=== PATIENT | female | born 1940 | race Caucasian/White ===

== ENCOUNTER 2018-02-17 17:09 | Inpatient (IN) | payer MEDICARE, BC ==
[~2018-02-17] VITALS: Ht 160 cm; Wt 89.1 kg
[2018-02-17] MEDS ORDERED: MEROPENEM 1GM 100 ML IV STA (17:16)
[2018-02-17] MEDS ORDERED: SODIUM CHLORIDE 0.9% 1000ML 1,000 ML IV STA ×2 (17:16→20:40)
[2018-02-17 17:56] LABS: BASOPHILS % 0.2 % (0.0-1.0); HEMATOCRIT 37.5 % (34.2-44.1); HEMOGLOBIN 13.2 g/dL (12.0-16.0); LYMPHOCYTES # (AUTO) 0.7 (1.0-3.2); LYMPHOCYTES % 3.7 % (18.0-39.1); MEAN CORPUSCULAR HEMOGLOBIN 30.6 pg (28-32); MEAN CORPUSCULAR HGB CONC 35.2 g/dL (31-35); MONOCYTES # (AUTO) 1.2 (0.2-0.8); MONOCYTES % 6.6 % (4.4-11.3); NEUTROPHILS # (AUTO) 16.1 (2.1-6.9); NEUTROPHILS % 88.5 % (38.7-80.0); PLATELET COUNT 246 x10e3/uL (140-360); RED BLOOD COUNT 4.31 x10e6/uL (3.6-5.1)
[2018-02-17] MEDS ORDERED: VANCOMYCIN 1GM/NS 250 ML 250 ML IV ONE (18:00)
[2018-02-17] MEDS ORDERED: IPRATROPIUM BROMIDE 0.02% 2.5 ML NEB NEB ONE (18:00)
[2018-02-17 18:15] LABS: ALBUMIN/GLOBULIN RATIO 0.9 (0.8-2.0); ANION GAP 20.8 mmol/L (8-16); BILIRUBIN,URINE NEGATIVE (NEGATIVE); CALCIUM 10.1 mg/dL (8.4-10.2); CLARITY,URINE HAZY (CLEAR); COLOR,URINE YELLOW (YELLOW); CREATININE, SERUM 1.21 mg/dL (0.57-1.11); KETONES,URINE NEGATIVE (NEGATIVE); LEUKOCYTE ESTERASE ,URINE NEGATIVE (NEGATIVE); NITRITE,URINE NEGATIVE (NEGATIVE); POTASSIUM 3.8 mmol/L (3.5-5.1); PROTEIN,URINE DIPSTICK NEGATIVE (NEGATIVE); URINE UROBILINOGEN 0.2 mg/dL (0.2 - 1)
[2018-02-17 18:16] LABS: CREATINE KINASE MB 12.6 ng/mL (0-5.0)
[2018-02-17 18:18] LABS: AMORPHOUS SEDIMENT,URINE RARE (FEW); RBC,URINE 0-5 /HPF (0-5)
[2018-02-17] MEDS ORDERED: MEROPENEM 1 GM VIAL IV ONE (18:30)
[2018-02-17] MEDS ORDERED: ALBUTEROL/IPRATROPIUM 3 ML NEB NEB ONE (18:30)
[2018-02-17] MEDS ORDERED: LEVOTHYROXINE88 MCG PO (19:29)
[2018-02-17] MEDS ORDERED: LOPRESSOR25 MG PO (19:29)
[2018-02-17] MEDS ORDERED: QUETIAPINE FUMA50 MG PO (19:29)
[2018-02-17] MEDS ORDERED: LEVETIRACETAM750 MG PO (19:29)
[2018-02-17] MEDS ORDERED: DICLOFENAC SODI75 MG PO (19:29)
[2018-02-17] MEDS ORDERED: BUSPIRONE HCL5 MG PO (19:29)
--- NOTE | 2018-02-17 19:50 | Diagnostic Imaging Report ---
HIP LEFT 2-3 VW (+/- PELVIS) HISTORY: Fell. COMPARISON: None available. FINDINGS: Bones: Mildly comminuted and displaced intertrochanteric fracture of the left femur. Joints: The joint spaces are well-maintained. Soft tissues: The soft tissues appear unremarkable. IMPRESSION: Acute intertrochanteric fracture of the left femur. Signed by: DR. Jose D Mixon MD on 02/17/2018 7:47 PM
--- NOTE | 2018-02-17 19:52 | Diagnostic Imaging Report ---
EXAMINATION: CHEST SINGLE (PORTABLE) INDICATION: Sepsis, evaluate for pneumonia, effusions. COMPARISON: None FINDINGS: AP view TUBES and LINES: Right chest port catheter tip overlies the lower SVC. LUNGS: Lungs are well inflated. Lungs are clear. There is no evidence of pneumonia or pulmonary edema. PLEURA: No pleural effusion or pneumothorax. HEART AND MEDIASTINUM: The cardiomediastinal silhouette is unremarkable. BONES AND SOFT TISSUES: No acute osseous lesion. Left axillary surgical clips. UPPER ABDOMEN: No free air under the diaphragm. IMPRESSION: No acute thoracic abnormality. Signed by: DR. Jose D Mixon MD on 02/17/2018 7:48 PM
[2018-02-17] MEDS ORDERED: ONDANSETRON HCL INJ 2 MG/ML VIAL IV PRN (20:00)
[2018-02-17] MEDS ORDERED: DIPHENHYDRAMINE HCL INJ 50 MG/ML VIAL IV PRN (20:00)
--- NOTE | 2018-02-17 20:28 | Diagnostic Imaging Report ---
History:Fall Comparison studies:None Technique: Axial images were obtained from the skull base to the vertex. Coronal and sagittal images reconstructed from the axial data. Intravenous contrast: None Dose modulation, iterative reconstruction, and/or weight based adjustment of the mA/kV was utilized to reduce the radiation dose to as low as reasonably achievable. Findings: Scalp/skull: No abnormalities. Extra-axial spaces: No masses. No fluid collections. Brain sulci: Mildly prominent. Ventricles: Mild compensatory dilatation. No hydrocephalus. Parenchyma: Scattered small hypodensities in the supratentorial white matter are small vessel ischemic changes. Small chronic lacunar infarct at the left paracentral steve. No masses, hemorrhage, acute or chronic cortical vascular insults. Sellar/suprasellar region: No abnormalities. Craniocervical junction: Patent foramen magnum. No Chiari one malformation. Incidental findings: Atherosclerotic calcifications in the carotid siphons and vertebral arteries . Impression: No acute abnormalities. Chronic findings: 1. Mild generalized volume loss. 2. Mild supratentorial white matter small vessel ischemic changes. Signed by: DR Antwon Nielson M.D. on 02/17/2018 8:25 PM
[2018-02-17] MEDS ORDERED: LEVALBUTEROL HCL SOLN NEBU 1.25 MG/3 ML NEB INH PRN (20:30)
[2018-02-17] MEDS ORDERED: ALBUTEROL SULF 0.083% NEB SOLN 3 ML NEB NEB PRN (20:30)
--- NOTE | 2018-02-17 20:33 | Diagnostic Imaging Report ---
History: Fall Comparison studies: None Technique: Axial images were obtained through the cervical region. Coronal and sagittal images reconstructed from the axial data. Intravenous contrast: None Dose modulation, iterative reconstruction, and/or weight based adjustment of the mA/kV was utilized to reduce the radiation dose to as low as reasonably achievable. Findings: Atlantoaxial articulation: Intact Alignment: Normal lordosis No scoliosis. Cervicomedullary junction: No abnormalities. Patent foramen magnum. Soft tissues: No gross abnormalities. Atherosclerotic calcifications at the carotid bulbs Vertebrae: No fractures, neoplasm or infection. Degenerative changes: Osteoporotic and facet hypertrophy results in moderate left foraminal, mild at C3-4 right, moderate right and mild left at C4-5, severe bilateral at C5-6, mild bilateral at C6-7. Disc degeneration with decreased intervertebral space from C3 through C6 without significant canal stenosis. IMPRESSION: 1. No acute cervical abnormality. Degenerative changes as described above. 2. Cannot rule out ligamentous, vascular or spinal cord injury. Signed by: DR Antwon Nielson M.D. on 02/17/2018 8:30 PM
--- OUTSIDE RECORDS SUMMARY | 2018-02-17 21:02 | XMS REPORT ---
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 Allergies, Adverse Reactions, Alerts This patient has no known allergies or adverse reactions. Medications This patient has no known medications. Results Test Description Test Time Test Comments Text Results Atomic Results Result Comments CT CERVICAL SPINE WO 2018-02-17 20:25:00 [place] [address] Patient Name: WHITNEY NAPOLES MR #: [id number] : 1940 Age/Sex: 77/F Req #: [id number] Adm Physician: Ordered by: KAMALA MAO MD Report #: [id number] Location: ER Room/Bed: Procedure: [id number] CT/CT CERVICAL SPINE WO Exam Date: 02/17/18 Exam Time: 1915 REPORT STATUS: Signed History: Fall Comparison studies: None Technique: Axial images were obtained through the cervical region. Coronal and sagittal images reconstructed from the axial data. Intravenous contrast: None Dose modulation, iterative reconstruction, and/or weight based adjustment of the mA/kV was utilized to reduce the radiation dose to as low as reasonably achievable. Findings: Atlantoaxial articulation: Intact Alignment: Normal lordosis No scoliosis. Cervicomedullary junction: No abnormalities. Patent foramen magnum. Soft tissues: No gross abnormalities. Atherosclerotic calcifications at the carotid bulbs Vertebrae: No fractures, neoplasm or infection. Degenerative changes: Osteoporotic and facet hypertrophy results in moderate left foraminal, mild at C3-4 right, moderate right and mild left at C4-5, severe bilateral at C5-6, mild bilateral at C6-7. Disc degeneration with decreased intervertebral space from C3 through C6 without significant canal stenosis. IMPRESSION: 1. No acute cervi albert abnormality. Degenerative changes as described above. 2. Cannot rule out ligamentous, vascular or spinal cord injury. Signed by: DR Antwon Nielson M.D. on 02/17/2018 8:30 PM Dictated By: ANTWON ELLISON MD 29 Transcribed By: DOUG on 02/17/182029 COPY TO: KAMALA MAO MD CT BRAIN WO 2018-02-17 20:18:00 [place] [address] Patient Name: WHITNEY NAPOLES MR #: [id number] : 1940 Age/Sex: 77/F Req #: [id number] Adm Physician: Ordered by: KAMALA MAO MD Report #: [id number] Location: Room/Bed: Procedure: [id number] CT/CT BRAIN WO Exam Date: 02/17/18 Exam Time: 1915 REPORT STATUS: Signed History:Fall Comparison studies:None Technique: Axial images were obtained from the skull base to the vertex. Coronal and sagittal images reconstructed from the axial data. Intravenous contrast: None Dose modulation, iterative reconstruction, and/or weight based adjustment of the mA/kV was utilized to reduce the radiation dose to as low as reasonably achievable. Findings: Scalp/skull: No abnormalities. Extra- axial spaces: No masses. No fluid collections. Brain sulci: Mildly prominent. Ventricles: Mild compensatory dilatation. No hydrocephalus. Parenchyma: Scattered small hypodensities in the supratentorial white matter are small vessel ischemic changes. Small chronic lacunar infarct at the left paracentral steve. No masses, hemorrhage, acute or chronic cortical vascular insults. Sellar/suprasellar region: No abnormalities. Craniocervical junction: Patent foramen magnum. No Chiari one malformation. Incidental findings: Atherosclerotic calcifications in the carotid siphons and vertebral arteries . Impression: No acute abnormalities. Chronic findings: 1. Mild generalized volume loss. 2. Mild supratentorial white matter small vessel ischemic changes. Signed by: DR Antwon Nielson M.D. on 02/17/2018 8:25 PM Dictated By: ANTWON ELLISON MD 24 Transcribed By: DOUG on 02/17/182024 COPY TO: KAMALA MAO MD CHEST SINGLE (PORTABLE) 2018-02-17 19:47:00 [place] [address] Patient Name: WHITNEY NAPOLES MR #: [id number] : 1940 Age/Sex: 77/F Req #: [id number] Adm Physician: Ordered by: KAMALA MAO MD Report #: [id number] Location: ER Room/Bed: Procedure: [id number] DX/CHEST SINGLE (PORTABLE) Exam Date: 02/17/18 Exam Time: 1912 REPORT STATUS: Signed EXAMINATION: CHEST SINGLE (PORTABLE) INDICAT ION: Sepsis, evaluate for pneumonia, effusions. COMPARISON: None FINDINGS: AP view TUBES and LINES: Right chest port catheter tip overlies the lower SVC. LUNGS: Lungs are well inflated. Lungs are clear. There is no evidence of pneumonia or pulmonary edema. PLEURA: No pleural effusion or pneumothorax. HEART AND MEDIASTINUM: The cardiomediastinal silhouette is unremarkable. BONES AND SOFT TISSUES: No acute osseous lesion. Left axillary surgical clips. UPPER ABDOMEN: No free air under the diaphragm. IMPRESSION: No acute thoracic abnormality. Signed by: DR. Jose D aGllego MD on 02/17/2018 7:48 PM Dictated By: JOSE D GALLEGO MD 47 Transcribed By: DOUG on 02/17/181947 COPY TO: KAMALA MAO MD HIP LEFT 2-3 VW (+/- PELVIS) 2018-02-17 19:45:00 [place] [address] Patient Name: WHITNEY NAPOLES MR #: [id number] : 1940 Age/Sex: 77/F Req #: [id number] Adm Physician: Ordered by: KAMALA MAO MD Report #: [id number] Location: ER Room/Bed: Procedure: [id number] DX/HIP LEFT 2-3 VW (+/- PELVIS) Exam Date: Exam Time: REPORT STATUS: Signed HIP LEFT 2-3 VW (+/- PELVIS) HISTORY: Fell. COMP ARISON: None available. FINDINGS: Bones: Mildly comminuted and displaced intertrochanteric fracture of the left femur. Joints: The joint spaces are well-maintained. Soft tissues: The soft tissues appear unremarkable. IMPRESSION: Acute intertrochanteric fracture of the left femur. Signed by: DR. Jose D Gallego MD on 02/17/2018 7:47 PM Dictated By: JOSE D GALLEGO MD 46 Transcribed By: DOUG on 02/17/181946 COPY TO: KAMALA MAO MD
[2018-02-17 23:10] LABS: CREATINE KINASE MB 13.2 ng/mL (0-5.0)
[2018-02-17 23:57] LABS: ABG HCO3 19 mmol/L (23-28); ABG PCO2 29 mmHg (41-51); ABG PH 7.42 (7.31-7.41); ABG PO2 209 mmHg (80-105)
[2018-02-18] VITALS (11 sets, daily range): BP systolic 90–125; BP diastolic 52–87
[2018-02-18] MEDS: MORPHINE SULFATE INJ 4 MG/ML INJ IV PRN ×2 (00:52→11:10)
[2018-02-18] MEDS: LACTATED RINGER'S 1,000 ML IV SCH ×3 (00:53→23:45)
[2018-02-18 04:52] LABS: BASOPHILS % 0.3 % (0.0-1.0); EOSINOPHILS % 0.1 % (0.0-6.0); HEMATOCRIT 28.3 % (34.2-44.1); HEMOGLOBIN 9.9 g/dL (12.0-16.0); LYMPHOCYTES % 9.3 % (18.0-39.1); MEAN CORPUSCULAR HEMOGLOBIN 30.3 pg (28-32); MEAN CORPUSCULAR VOLUME 86.5 fL (81-99); MONOCYTES # (AUTO) 1.2 (0.2-0.8); MONOCYTES % 11.1 % (4.4-11.3); NEUTROPHILS # (AUTO) 8.5 (2.1-6.9); NEUTROPHILS % 78.8 % (38.7-80.0); PLATELET COUNT 156 x10e3/uL (140-360); RED BLOOD COUNT 3.27 x10e6/uL (3.6-5.1); RED CELL DISTRIBUTION WIDTH 12.1 % (11.7-14.4)
[2018-02-18 05:38] LABS: CREATINE KINASE MB 8.4 ng/mL (0-5.0)
[2018-02-18] MEDS: LEVOTHYROXINE SODIUM 88 MCG TAB PO SCH (06:57)
[2018-02-18 07:18] LABS: ANION GAP 13.8 mmol/L (8-16); BLOOD UREA NITROGEN 26 mg/dL (7-26); BUN/CREATININE RATIO 34 (6-25); CALCIUM 8.4 mg/dL (8.4-10.2); CARBON DIOXIDE 19 mmol/L (22-29); CHLORIDE 103 mmol/L (98-107); CREATININE, SERUM 0.77 mg/dL (0.57-1.11); EST GLOMERULAR FILTRATION RATE > 60 ML/MIN (60-); GLUCOSE 103 mg/dL (74-118); POTASSIUM 3.8 mmol/L (3.5-5.1); SODIUM 132 mmol/L (136-145)
[2018-02-18] MEDS: FAMOTIDINE 20 MG/2 ML VIAL IV SCH ×2 (09:48→17:16)
[2018-02-18] MEDS: METOPROLOL TARTRATE 25 MG TAB PO SCH ×2 (09:49→17:00)
[2018-02-18] MEDS: LEVETIRACETAM ORAL SOLUTION 500 MG/5 ML SOLN PO SCH ×4 (09:49→21:10)
[2018-02-18] MEDS: DICLOFENAC SOD 50 MG TAB PO SCH ×2 (09:49→17:00)
[2018-02-18] MEDS: QUETIAPINE FUMARATE 25 MG TAB PO SCH ×2 (09:49→17:16)
[2018-02-18 14:19] LABS: CREATINE KINASE MB 3.6 ng/mL (0-5.0)
--- NOTE | 2018-02-18 15:13 | Consultation ---
DATE OF CONSULTATION: February 18, 2018 CARDIOLOGY CONSULTATION REASON FOR CONSULTATION: Atrial fibrillation. HISTORY OF PRESENT ILLNESS: This is a 77-year-old woman with a history of hypertension, hypothyroidism, seizure disorder, and degenerative joint disease. She was evidently found on the floor with stool and urine around her. The patient is quite confused. She thinks it is 1977 currently. She cannot provide me the exact details of her presenting symptoms or medical history. Evidently, she has been drinking more wine lately and was noted to be confused with decreased mentation. The patient was subsequently found to have a left hip fracture. We were consulted for atrial fibrillation. She, again, cannot provide me any past medical history. There is no clear history of atrial fibrillation from the records. REVIEW OF SYSTEMS: Unable to be obtained due to confused status. PAST MEDICAL HISTORY: Hypertension, hypothyroidism, seizure disorder. PAST SURGICAL HISTORY: None recent. SOCIAL HISTORY: Alcohol use. No illicit drug use or tobacco use. FAMILY HISTORY: Unknown. ALLERGIES: NO KNOWN DRUG ALLERGIES. MEDICATIONS: See medication reconciliation form. PHYSICAL EXAMINATION VITAL SIGNS: Temperature 98.7 degrees. Heart rate is 112. Respiratory rate is 16. Blood pressure 125/86. Oxygen saturation 100% on room air. GENERAL: She is an elderly woman in no apparent distress. Alert, not oriented. HEAD: Normocephalic and atraumatic. EYES: The extraocular muscles are intact. Conjunctivae are clear. NECK: No jugular venous distention. No bruits. CARDIOVASCULAR: She is irregularly irregular. Tachycardic. Normal S1 and S2. Mild systolic murmur heard best at the left lower sternal border. LUNGS: There are rhonchi in both lung gómez. ABDOMEN: Soft, nontender. EXTREMITIES: No edema. VASCULAR: 2+ pulses. SKIN: Warm, dry and intact. NEUROLOGIC: No focal deficits noted. LABORATORY DATA: Reviewed. Hemoglobin is 9.9. Creatinine is 0.77. CK is 967, CK-MB 13.2, troponin I 0.02. Potassium was 3.8. Chest x-ray shows no acute thoracic abnormality. Telemetry monitoring reveals paroxysmal atrial fibrillation. A 12-lead electrocardiogram showed atrial fibrillation with rapid ventricular response. IMPRESSION AND RECOMMENDATIONS 1. Atrial fibrillation. The patient has paroxysmal atrial fibrillation currently with rapid ventricular response. Will increase metoprolol for adequate rate control. The patient does have an elevated CHADS-VASc score for age and female sex. Will avoid anticoagulation at the current time due to recent fall, hip fracture and confusion. Will check a 2-D echocardiogram. Please continue to monitor closely on telemetry. 2. Hip fracture. The patient is low to moderate cardiovascular risk with surgical operation. She is acceptable to proceed with any surgical operation needed. Will check a 2-D echocardiogram to ensure normal left ventricular systolic function. 3. Hypertension. The patient's blood pressure is well controlled on current regimen. Thank you for this consultation. We will follow along with you. Job#: [id number]
--- NOTE | 2018-02-18 16:33 | Diagnostic Imaging Report ---
EXAM: CTA Chest WITH contrast / Pulmonary Embolus Study INDICATION: Shortness of breath COMPARISON: None. TECHNIQUE: Angiogram of the chest was obtained using a multidetector helical scanner after administration of IV contrast. Coronal and sagittal reformations were obtained. Pulmonary embolus protocol. IV CONTRAST: 100 mL Isovue-370 COMPLICATIONS: None RADIATION DOSE: Total DLP: 384 mGy*cm Estimated effective dose: (DLP x 0.015 x size factor) mSv CTDIvol has been reviewed. It is below the limits set by the Radiation Protocol Committee (RPC). Appropriate CT dose reduction techniques were utilized. FINDINGS: Lines and Tubes: Right chest wall port terminating SVC. Lower Neck: No acute findings. Heart and Great Vessels: The aorta and main pulmonary artery measure 37 and 29 mm. respectively. No pericardial effusion. Mild coronary artery vascular calcifications poorly evaluated due to motion. No central pulmonary and was. Peripheral evaluation limited by respiratory motion artifact. Lymph Nodes: No suspicious adenopathy. Lungs: No pleural effusion or pneumothorax. Trachea and central bronchi are unremarkable. There is an area of consolidation and bronchiectasis in the posterior aspect of the left apex with linear extension into the hilum. Bibasilar opacities have the appearance of atelectasis and/or scarring. 4 mm nodule right series 3 image 53 likely associated with fissure suggesting fissural lymph node. Upper abdomen: No acute findings. Bones and Soft Tissues: Mottled appearance of spine may be related to technique. IMPRESSION: 1. No pulmonary embolus centrally. Peripheral evaluation limited. 2. Pleural-based consolidation with air bronchograms and linear extension to the left hilum most notable in the posterior aspect of the left apex. Finding has the appearance of chronic lung change to include postradiation changes. If prior imaging is available for comparison, this would be helpful. 3. Other findings as above. Signed by: Dr. Pablo Kay MD on 02/18/2018 4:29 PM
[2018-02-18] MEDS: BALSAM PERU/CASTOR OIL 60 GM OINT...G. TP SCH (17:17)
[2018-02-18] MEDS ORDERED: SODIUM CHLORIDE 0.9% 100 ML 100 ML ONE (22:43)
[2018-02-18] MEDS ORDERED: IOPAMIDOL 370 MG/ML 200 ML INFUS..BTL INJ ONE (22:43)
[2018-02-19] VITALS (8 sets, daily range): BP systolic 100–116; BP diastolic 57–73
[2018-02-19] MEDS: LEVOTHYROXINE SODIUM 88 MCG TAB PO SCH (06:02)
[2018-02-19] MEDS: QUETIAPINE FUMARATE 25 MG TAB PO SCH ×2 (09:00→16:11)
[2018-02-19] MEDS: BALSAM PERU/CASTOR OIL 60 GM OINT...G. TP SCH ×2 (09:09→16:11)
[2018-02-19] MEDS: FAMOTIDINE 20 MG/2 ML VIAL IV SCH ×2 (09:09→16:11)
[2018-02-19] MEDS: DICLOFENAC SOD 50 MG TAB PO SCH ×2 (09:09→16:11)
[2018-02-19] MEDS: LEVETIRACETAM ORAL SOLUTION 500 MG/5 ML SOLN PO SCH ×4 (09:09→21:02)
[2018-02-19] MEDS: METOPROLOL TARTRATE 25 MG TAB PO SCH ×2 (09:10→16:11)
[2018-02-19] MEDS: MORPHINE SULFATE INJ 4 MG/ML INJ IV PRN ×2 (10:01→21:03)
[2018-02-19] MEDS: LACTATED RINGER'S 1,000 ML IV SCH (12:25)
[2018-02-19 15:01] LABS: AMPHETAMINES SCREEN,URINE NEGATIVE (NEGATIVE); BENZODIAZEPINES SCREEN,URINE NEGATIVE (NEGATIVE); PHENCYCLIDINE SCREEN,URINE NEGATIVE (NEGATIVE)
[2018-02-19] MEDS ORDERED: CEFAZOLIN SOD 1 GM VIAL IV SCH (16:30)
--- NOTE | 2018-02-19 16:37 | Progress Note ---
DATE: February 19, 2018 SUBJECTIVE: The patient is mildly confused. Denies any chest pain, shortness of breath or palpitations. Reports right hip pain. OBJECTIVE VITAL SIGNS: Temperature 98.7, heart rate 81, respirations 17, blood pressure 107/62, oxygen saturation 100% on 2 liters nasal cannula. GENERAL: She is an elderly woman lying in bed with mild confusion. CARDIOVASCULAR: Regular rate and rhythm with ectopy. Normal S1 and S2. Systolic murmur heard best at the left lower sternal border. LUNGS: Mild rhonchi in both lung gómez. ABDOMEN: Soft, nontender. EXTREMITIES: No edema. VASCULAR: 2+pulses. LABORATORY DATA: Reviewed. Notable for a hemoglobin of 9.9, creatinine 0.77. TELEMETRY: Monitoring revealed paroxysmal atrial flutter/fibrillation with controlled ventricular response. Other episodes of normal sinus rhythm with multiple premature atrial complexes. IMPRESSION 1. Paroxysmal atrial fibrillation. 2. Hypertension. 3. Hip fracture. 4. Alcohol abuse. 5. Possible dementia. 6. Hypothyroidism. RECOMMENDATIONS: The patient has occasional episodes of atrial fibrillation. Currently, she is in normal sinus rhythm with premature atrial complexes. She does have an elevated CHADS VASc score. However, remains significant fall risk due to her dementia, alcohol use and confusion. Will avoid anticoagulation at this point in time. Will check magnesium level and thyroid function studies. Her echocardiogram showed overall preserved left ventricular systolic function with an estimated ejection fraction of 50% to 55%. The patient may proceed with orthopedic hip surgery with an acceptable cardiovascular risk. Will continue to follow along with you. Job#: [id number]
[2018-02-20] VITALS (9 sets, daily range): BP systolic 100–152; BP diastolic 58–89
[2018-02-20] MEDS ORDERED: CEFAZOLIN SOD 2 GM in WATER STERILE 10ML VIAL 10 ML IV ONE (07:00)
[2018-02-20] MEDS ORDERED: CEFAZOLIN SOD 1 GM VIAL IV ONE ×2 (07:00→08:00)
[2018-02-20] MEDS: LEVOTHYROXINE SODIUM 88 MCG TAB PO SCH (07:33)
[2018-02-20] MEDS: DICLOFENAC SOD 50 MG TAB PO SCH ×2 (08:00→18:25)
[2018-02-20] MEDS: METOPROLOL TARTRATE 25 MG TAB PO SCH ×2 (09:00→18:29)
[2018-02-20] MEDS: QUETIAPINE FUMARATE 25 MG TAB PO SCH ×2 (09:00→18:26)
[2018-02-20] MEDS: LEVETIRACETAM ORAL SOLUTION 500 MG/5 ML SOLN PO SCH ×4 (09:00→20:46)
[2018-02-20] MEDS: FAMOTIDINE 20 MG/2 ML VIAL IV SCH ×2 (09:00→18:26)
[2018-02-20] MEDS: SODIUM CHLORIDE 0.9% 1000ML 1,000 ML IV SCH ×2 (12:30)
[2018-02-20] MEDS ORDERED: BACITRACIN 50,000 UNIT VIAL ONE (13:16)
--- NOTE | 2018-02-20 13:30 | Progress Note ---
DATE: February 20, 2018 CARDIOLOGY PROGRESS NOTE SUBJECTIVE: Patient found sleeping comfortably. No acute events or active complaints. OBJECTIVE VITAL SIGNS: Temperature 98.2, heart rate 85, respirations 20, blood pressure 110/73, oxygen saturation 99% on 2 liters nasal cannula. GENERAL: She is an elderly woman in no apparent distress, found sleeping comfortably. CARDIOVASCULAR: Regular rate and rhythm with ectopy. LUNGS: Clear to auscultation. ABDOMEN: Soft, nontender, nondistended. NEUROLOGIC: Mildly confused. No focal deficits. LABORATORY DATA: Reviewed. None recent. TELEMETRY MONITORING: Normal sinus rhythm with premature atrial complexes. IMAGING DATA: Reviewed. CT angiogram of the chest showed no pulmonary embolism with mild coronary artery vascular calcifications with normal pulmonary arterial and aortic measurements. IMPRESSION 1. Paroxysmal atrial fibrillation. 2. Premature atrial complexes. 3. Hypertension. 4. Alcohol use. 5. Possible dementia. 6. Hypothyroidism. 7. Hip fracture. RECOMMENDATIONS: The patient has currently maintained normal sinus rhythm on metoprolol tartrate 25 mg b.i.d. Continue this and continue closely monitoring on telemetry. She does have an elevated CHADS VASc score. However, would avoid anticoagulation given her increased fall risk. The patient is otherwise acceptable risk for hip orthopedic procedure. Will continue to follow along with other consultants and primary team. Job#: [id number]
[2018-02-20] MEDS ORDERED: ACETAMINOPHEN 1000 MG/100 ML 100 ML IV ONE (14:25)
[2018-02-20] MEDS ORDERED: SODIUM CHLORIDE 0.9% 1000ML 1,000 ML IV SCH (15:14)
[2018-02-20] MEDS ORDERED: ACETAMINOPHEN 1000 MG/100 ML IV PRN (15:15)
[2018-02-20] MEDS ORDERED: ONDANSETRON HCL INJ 2 MG/ML VIAL IV PRN (15:15)
[2018-02-20] MEDS ORDERED: NALOXONE HCL INJ 0.4 MG/ML AMP IV PRN (15:15)
[2018-02-20] MEDS ORDERED: HYDROMORPHONE 0.2MG/ML-SOD CHL 30ML PCA SYRINGE IV PRN (15:15)
[2018-02-20] MEDS ORDERED: FENTANYL CITRATE/PF 100MCG/2 ML INJ ONE ×2 (15:53→17:54)
[2018-02-20] MEDS ORDERED: HYDROMORPHONE 0.2MG/ML-SOD CHL 30ML PCA SYRINGE IV ONE (16:15)
--- NOTE | 2018-02-20 16:34 | Diagnostic Imaging Report ---
Exam: AP pelvis and separate two-view femur dated 02/20/2018 at 4:13 PM History: Fracture with operative fixation Comparison: 02/17/2018 Findings: Intramedullary anel and oblique femoral neck screw has been placed to affix a left intertrochanteric fracture. There are two distal anchoring transverse screws. Position appears anatomic. Impression: Operative fixation of an intertrochanteric fracture. Signed by: Dr. Pieter Valdes DO on 02/20/2018 4:31 PM
[2018-02-20] MEDS: BALSAM PERU/CASTOR OIL 60 GM OINT...G. TP SCH ×2 (17:42→17:43)
[2018-02-20] MEDS ORDERED: MIDAZOLAM HCL 2 MG/2 ML VIAL ONE (17:54)
[2018-02-20] MEDS ORDERED: ACETAMINOPHEN 1000 MG/100 ML IV ONE (18:48)
[2018-02-20] MEDS ORDERED: ONDANSETRON HCL INJ 2 MG/ML VIAL ONE (18:48)
[2018-02-20] MEDS ORDERED: DEXAMETHASONE SOD PHOS INJ 4 MG/ML VIAL ONE (18:48)
[2018-02-20] MEDS ORDERED: LIDOCAINE HCL 2% LOCAL INJ 5 ML SDV VIAL INJ ONE (18:48)
[2018-02-20] MEDS ORDERED: SEVOFLURANE INHAL SOLN 250 ML PEN BTL ONE (18:48)
[2018-02-20] MEDS ORDERED: PROPOFOL IV EMULSION 10 MG/ML 20 ML VIAL ONE (18:48)
[2018-02-20] MEDS: CEFAZOLIN SOD 1 GM VIAL IV SCH (21:50)
[2018-02-20] MEDS ORDERED: CEFAZOLIN SOD 1 GM/D5W 50ML 50 ML IV SCH (22:00)
[2018-02-21] MEDS: SODIUM CHLORIDE 0.9% 1000ML 1,000 ML IV SCH (04:05)
[2018-02-21 04:07] VITALS: BP 123/70
[2018-02-21 05:02] LABS: HEMATOCRIT 25.2 % (34.2-44.1); HEMOGLOBIN 8.6 g/dL (12.0-16.0)
[2018-02-21] MEDS: CEFAZOLIN SOD 1 GM VIAL IV SCH ×3 (05:33→15:20)
[2018-02-21] MEDS: LEVOTHYROXINE SODIUM 88 MCG TAB PO SCH (05:33)
[2018-02-21 07:26] VITALS: BP 132/72
[2018-02-21] MEDS: LEVETIRACETAM ORAL SOLUTION 500 MG/5 ML SOLN PO SCH ×4 (08:59→22:30)
[2018-02-21] MEDS: BALSAM PERU/CASTOR OIL 60 GM OINT...G. TP SCH ×3 (08:59→15:45)
[2018-02-21] MEDS: FAMOTIDINE 20 MG/2 ML VIAL IV SCH ×2 (08:59→17:51)
[2018-02-21] MEDS: DICLOFENAC SOD 50 MG TAB PO SCH ×2 (08:59→17:52)
[2018-02-21] MEDS: QUETIAPINE FUMARATE 25 MG TAB PO SCH ×2 (08:59→17:51)
[2018-02-21] MEDS: METOPROLOL TARTRATE 25 MG TAB PO SCH ×2 (09:14→18:08)
[2018-02-21 09:26] VITALS: BP 132/72
--- NOTE | 2018-02-21 13:32 | Progress Note ---
DATE: February 21, 2018 CARDIOLOGY PROGRESS NOTE SUBJECTIVE: Patient has pain at the hip site. No chest pain, shortness of breath. OBJECTIVE VITAL SIGNS: Temperature is 98.7, heart rate is 94, respirations are 16, blood pressure is 132/74, oxygen saturation 96% on room air. GENERALLY: Elderly woman, mildly confused, no apparent distress. CARDIOVASCULAR: Regular rate and rhythm with ectopy. LUNGS: Clear to auscultation. ABDOMEN: Soft, nontender, nondistended. EXTREMITIES: No edema. NEUROLOGIC: No focal deficits noted. Mild confusion. Laboratory data reviewed. None current. Medications reviewed. Telemetry monitoring revealed normal sinus rhythm. IMPRESSION 1. Paroxysmal atrial fibrillation. 2. Premature atrial complex. 3. Hypertension. 4. Alcohol use. 5. Dementia. 6. Hypothyroidism. 7. Hip fracture status post repair. RECOMMENDATIONS: Currently the patient remains in normal sinus rhythm on metoprolol and will continue this. She has an elevated CHADS-VASc score. However, is at a significant fall risk and has maintained normal sinus rhythm; so, will avoid anticoagulation. Otherwise, continue all cardiovascular medications. The patient is stable for discharge to a nursing facility per primary team. Job#: [id number] EV
[2018-02-21] MEDS ORDERED: CEFAZOLIN SOD 1 GM/D5W 50ML 50 ML IV ONE (15:24)
[2018-02-21 16:30] VITALS: BP 109/56
[2018-02-21] MEDS: RIVAROXABAN 10 MG TABLET PO SCH (17:52)
--- NOTE | 2018-02-21 18:49 | Operative Report ---
DATE OF PROCEDURE: February 20, 2018 PREOPERATIVE DIAGNOSIS: Left multipart intertrochanteric hip fracture. POSTOPERATIVE DIAGNOSIS: Left multipart intertrochanteric hip fracture. PROCEDURES PERFORMED: The patient underwent 1. A closed reduction of a left intertrochanteric hip fracture. 2. A left long Gamma nail. PARCEL CONTRACTOR: Cecelia Amezcua. ANESTHESIA: General endotracheal intubation anesthesia. INTRAVENOUS FLUIDS: As per the anesthesia record. BLOOD LOSS: Approximately 100 mL. OPERATIVE PROCEDURE IN DETAIL: Ms. Chun was taken to the operating room and placed in the supine position on the operating room table. Following induction of general anesthesia as well as endotracheal intubation, the patient's left lower extremity was placed in a well-padded longitudinal traction and the right lower extremity was placed in a well-padded lithotomy position. Fluoroscopic evaluation of the patient's left hip demonstrated a displaced intertrochanteric hip fracture. The hip was manipulated under anesthesia, and this resulted in acceptable realignment of the injury. The patient's thigh and flank were then prepped and draped in standard surgical fashion. The case was begun by creating an incision roughly at the level of the tip of the greater trochanter. This incision was carried through the skin only. Blunt dissection was used to deepen the incision to the level of the greater trochanter. A cannulated awl was then placed on the tip of the trochanter and advanced within the femur. The position of the awl was checked in both the AP and lateral planes. A guidewire was then placed within the medullary canal of the femur, and the position of the guidewire was also checked using fluoroscopy. Sequential reaming was then undertaken. Measurements were taken, and an appropriate-sized implant was chosen. It was inserted without difficulty. The position of the implant was again checked in both the AP and lateral planes using fluoroscopy and found to be in appropriate position. A 2nd incision was created along the lateral aspect of the femur somewhat more distally. This incision was deepened to the lateral aspect of the femur. The guide for the compression screw was then inserted from lateral to medial through the neck into the head of the femur. A guide pin was then inserted from lateral to medial through the neck and into the head of the femur. The position of the guide pin was checked using fluoroscopy and found to be appropriate. Measurements were taken. A reamer was then used to create a channel for the implant. An implant was then chosen and inserted without difficulty. Compression was then placed across the fracture site and visualized using fluoroscopy. The compression screw was then locked to allow further compression but prevent rotation. The nail was then locked at the level of the knee with 2 screws to prevent rotation. The implant was then again visualized throughout its entirety in both the AP and lateral planes and found to be appropriately stabilizing the injury. All wounds were copiously irrigated. All wounds were then closed in a multilayer fashion. Sterile dressings were applied, and the patient was awakened and taken to the postanesthesia care unit in stable condition. Cecelia Amezcua acted as the assistant professor of criminal justice for this case and was necessary for both the prepping and draping of the patient as well as the positioning of the patient and the retraction of soft tissues that allowed this case to be successful. Job#: [id number] EV
[2018-02-21] MEDS: ACETAMINOPHEN 325 MG TAB PO PRN (19:20)
[2018-02-21 20:00] VITALS: BP 112/67
[2018-02-21] MEDS ORDERED: SODIUM CHLORIDE 0.9% 250ML 250 ML ONE (22:23)
[2018-02-22] VITALS (7 sets, daily range): BP systolic 91–143; BP diastolic 52–82
[2018-02-22 05:06] LABS: HEMATOCRIT 23.5 % (34.2-44.1)
[2018-02-22] MEDS: LEVOTHYROXINE SODIUM 88 MCG TAB PO SCH (06:50)
[2018-02-22] MEDS: ACETAMINOPHEN 325 MG TAB PO PRN (09:13)
[2018-02-22] MEDS: LEVETIRACETAM ORAL SOLUTION 500 MG/5 ML SOLN PO SCH ×4 (09:13→20:33)
[2018-02-22] MEDS: FAMOTIDINE 20 MG/2 ML VIAL IV SCH ×2 (09:13→17:29)
[2018-02-22] MEDS: DICLOFENAC SOD 50 MG TAB PO SCH ×2 (09:14→17:29)
[2018-02-22] MEDS: QUETIAPINE FUMARATE 25 MG TAB PO SCH ×2 (09:14→17:29)
[2018-02-22] MEDS: BALSAM PERU/CASTOR OIL 60 GM OINT...G. TP SCH ×2 (09:14→16:44)
[2018-02-22] MEDS: BUSPIRONE HCL 5 MG TAB PO PRN ×2 (09:16→20:33)
[2018-02-22] MEDS: METOPROLOL TARTRATE 25 MG TAB PO SCH ×2 (09:25→17:29)
[2018-02-22] MEDS ORDERED: SODIUM CHLORIDE 0.9% 250ML 250 ML ONE (14:03)
--- NOTE | 2018-02-22 14:53 | Progress Note ---
DATE: February 22, 2018 CARDIOLOGY PROGRESS NOTE SUBJECTIVE: Patient is feeling well. No events. No symptoms. No chest pain. No shortness of breath. OBJECTIVE VITAL SIGNS: Temperature is 98, heart rate is 83, respirations are 13, blood pressure is 120/74, oxygen saturation is 94% on room air. GENERAL: He is elderly and in no apparent distress. CARDIOVASCULAR: Regular rate and rhythm. LUNGS: Clear to auscultation. ABDOMEN: Soft and nontender. EXTREMITIES: No edema. NEUROLOGICAL: No focal deficits noted. Mild confusion. LABORATORY DATA: Shows a hemoglobin of 8. INPATIENT CARDIOVASCULAR MEDICATIONS: Reviewed. Telemetry monitoring revealed normal sinus rhythm. IMPRESSION 1. Paroxysmal atrial fibrillation, resolved. 2. Hypertension. 3. Alcohol use. 4. Dementia. 5. Hypothyroidism. 6. Hip fracture, status post repair. RECOMMENDATIONS: The patient remains in normal sinus rhythm after the last couple of days. Continue metoprolol with holding parameters for rate control. She has an elevated Pablo's vas score. However, has maintained normal sinus rhythm for the last few days, and is a significant fall risk. Would avoid anticoagulation at this point in time. She is otherwise stable from a cardiovascular standpoint. Continue to monitor. Job#: [id number] AIXA
[2018-02-22] MEDS: RIVAROXABAN 10 MG TABLET PO SCH (17:29)
[2018-02-23] VITALS (8 sets, daily range): BP systolic 132–155; BP diastolic 42–97
[2018-02-23] MEDS: HYDROCODONE/APAP 5MG-325MG TAB PO PRN ×4 (00:33→20:50)
[2018-02-23] MEDS: LEVOTHYROXINE SODIUM 88 MCG TAB PO SCH (05:15)
[2018-02-23 06:10] LABS: BASOPHILS % 0.6 % (0.0-1.0); EOSINOPHILS # (AUTO) 0.3 (0.0-0.4); EOSINOPHILS % 6.3 % (0.0-6.0); HEMATOCRIT 23.9 % (34.2-44.1); HEMOGLOBIN 8.2 g/dL (12.0-16.0); LYMPHOCYTES # (AUTO) 0.9 (1.0-3.2); LYMPHOCYTES % 17.4 % (18.0-39.1); MEAN CORPUSCULAR HEMOGLOBIN 31.1 pg (28-32); MEAN CORPUSCULAR HGB CONC 34.3 g/dL (31-35); MEAN CORPUSCULAR VOLUME 90.5 fL (81-99); MONOCYTES # (AUTO) 0.5 (0.2-0.8); MONOCYTES % 9.3 % (4.4-11.3); NEUTROPHILS # (AUTO) 3.3 (2.1-6.9); NEUTROPHILS % 65.2 % (38.7-80.0); PLATELET COUNT 221 x10e3/uL (140-360); RED BLOOD COUNT 2.64 x10e6/uL (3.6-5.1); RED CELL DISTRIBUTION WIDTH 12.3 % (11.7-14.4)
--- NOTE | 2018-02-23 07:51 | Progress Note ---
DATE: February 23, 2018 SUBJECTIVE: Patient is status post hip surgery. The patient underwent open reduction and internal fixation by Dr. Arceo. Patient is currently feeling better. No pain. Pain is controlled. Patient has constipation and has not had a bowel movement for the last 3 days. She has not been out of bed yet. Patient is currently on pain management and also her CV medications. OBJECTIVE VITALS: Temperature is 96.8, pulse is 75, blood pressure is 140/42, and SpO2 of 96%. GENERAL: Patient is alert and oriented x3. LUNGS: Clear to auscultation. CARDIOVASCULAR: Irregularly irregular. Heart rate in the 60s. EXTREMITIES: Left hip dressing is clean and clear. No drainage present. No clubbing, no cyanosis, and no edema. LABORATORY DATA: From ; BUN is 26 and creatinine of 0.77. Hemoglobin today is 8.2 and hematocrit of 23.9. ALT and AST all normal. ASSESSMENT AND PLAN: A 77-year-old with; 1. Left hip fracture, status open reduction internal fixation. 2. Atrial fibrillation. We will continue with metoprolol titrate 25 mg twice a day. 3. Patient also has history of seizure. We will continue her on Keppra. 4. For her constipation, we will give her Colace twice a day. 5. For atrial fibrillation, she is also on Xarelto 10 mg daily. 6. Hypothyroidism. Continue on levothyroxine. For further information, look in the chart. Patient is progressing well and disposition is SNF versus home with physical therapy. 1. Anemia. We will continue trending her hemoglobin and hematocrit. Job#: [id number] VAS
[2018-02-23] MEDS: FAMOTIDINE 20 MG/2 ML VIAL IV SCH (08:43)
[2018-02-23] MEDS: QUETIAPINE FUMARATE 25 MG TAB PO SCH ×2 (08:43→17:14)
[2018-02-23] MEDS: DICLOFENAC SOD 50 MG TAB PO SCH ×2 (08:43→17:14)
[2018-02-23] MEDS: BALSAM PERU/CASTOR OIL 60 GM OINT...G. TP SCH ×2 (08:43→17:14)
[2018-02-23] MEDS: METOPROLOL TARTRATE 25 MG TAB PO SCH ×2 (08:43→17:14)
[2018-02-23] MEDS: LEVETIRACETAM 500 MG TAB PO SCH ×4 (08:43→20:50)
[2018-02-23] MEDS ORDERED: LEVALBUTEROL HCL SOLN NEBU 1.25 MG/3 ML NEB INH PRN (16:45)
[2018-02-23] MEDS: FAMOTIDINE 20 MG TAB PO SCH (17:14)
[2018-02-23] MEDS: RIVAROXABAN 10 MG TABLET PO SCH (17:14)
[2018-02-24] VITALS (8 sets, daily range): BP systolic 111–155; BP diastolic 65–81
[2018-02-24] MEDS: HYDROCODONE/APAP 5MG-325MG TAB PO PRN ×2 (05:00→10:26)
[2018-02-24] MEDS: LEVOTHYROXINE SODIUM 88 MCG TAB PO SCH (05:09)
--- NOTE | 2018-02-24 07:03 | Progress Note ---
DATE: February 24, 2018 SUBJECTIVE: Patient came in with intratrochanteric fracture of the left hip, status post open reduction internal fixation. Patient also has atrial fibrillation. Currently, in no complaints except for feeling tired. Patient has not ambulated yesterday and the reason because she cannot. MEDICATIONS: Patient is currently on albuterol, Atrovent, levalbuterol for hypoxia, quetiapine, BuSpar for mental health and Keppra 750 mg q.i.d. for her seizure disorder. OBJECTIVE VITALS: Patient's temperature is 96.8, pulse is 69, blood pressure is 123/65, and satting at 96%. GENERAL: Alert and oriented x3. LUNGS: Clear to auscultation. CVS: S1, S2. Irregularly irregular. ABDOMEN: Nontender. EXTREMITIES: Left hip surgical site clean and dry. No edema. LABORATORY DATA: Last hemoglobin from yesterday is 8.2 and hematocrit is 23.9. ASSESSMENT AND PLAN 1. Status post fall with intratrochanteric fracture, status post open reduction internal fixation. Continue with plan for therapy and also encouraged patient to have therapy. 2. Atrial fibrillation. She is on Xarelto. 3. Hypertension. Continue her medication 4. Seizure disorder. Continue her medication. 5. Pain control is adequate. We will continue to monitor the patient. Job#: [id number] VAS
[2018-02-24 07:20] LABS: BASOPHILS % 0.8 % (0.0-1.0); EOSINOPHILS # (AUTO) 0.3 (0.0-0.4); EOSINOPHILS % 5.4 % (0.0-6.0); HEMATOCRIT 25.6 % (34.2-44.1); HEMOGLOBIN 8.8 g/dL (12.0-16.0); LYMPHOCYTES # (AUTO) 0.9 (1.0-3.2); LYMPHOCYTES % 18.7 % (18.0-39.1); MEAN CORPUSCULAR HEMOGLOBIN 30.6 pg (28-32); MEAN CORPUSCULAR HGB CONC 34.4 g/dL (31-35); MEAN CORPUSCULAR VOLUME 88.9 fL (81-99); MONOCYTES # (AUTO) 0.5 (0.2-0.8); MONOCYTES % 10.4 % (4.4-11.3); NEUTROPHILS # (AUTO) 3.1 (2.1-6.9); NEUTROPHILS % 63.5 % (38.7-80.0); PLATELET COUNT 256 x10e3/uL (140-360); RED BLOOD COUNT 2.88 x10e6/uL (3.6-5.1); RED CELL DISTRIBUTION WIDTH 12.2 % (11.7-14.4)
[2018-02-24 07:37] LABS: BLOOD UREA NITROGEN 12 mg/dL (7-26); BUN/CREATININE RATIO 18 (6-25); CALCIUM 8.3 mg/dL (8.4-10.2); CARBON DIOXIDE 24 mmol/L (22-29); CHLORIDE 103 mmol/L (98-107); CREATININE, SERUM 0.68 mg/dL (0.57-1.11); EST GLOMERULAR FILTRATION RATE > 60 ML/MIN (60-); GLUCOSE 91 mg/dL (74-118); SODIUM 135 mmol/L (136-145)
[2018-02-24] MEDS: FAMOTIDINE 20 MG TAB PO SCH ×2 (08:24→17:13)
[2018-02-24] MEDS: LEVETIRACETAM 500 MG TAB PO SCH ×4 (08:24→20:38)
[2018-02-24] MEDS: METOPROLOL TARTRATE 25 MG TAB PO SCH ×2 (08:24→17:13)
[2018-02-24] MEDS: BALSAM PERU/CASTOR OIL 60 GM OINT...G. TP SCH ×2 (08:24→17:13)
[2018-02-24] MEDS: DICLOFENAC SOD 50 MG TAB PO SCH ×2 (08:24→17:13)
[2018-02-24] MEDS: QUETIAPINE FUMARATE 25 MG TAB PO SCH ×2 (08:24→17:13)
[2018-02-24] MEDS: BUSPIRONE HCL 5 MG TAB PO PRN (12:38)
[2018-02-24] MEDS: RIVAROXABAN 10 MG TABLET PO SCH (17:13)
[2018-02-25] VITALS (8 sets, daily range): BP systolic 104–160; BP diastolic 59–95
[2018-02-25] MEDS: LEVOTHYROXINE SODIUM 88 MCG TAB PO SCH (05:12)
[2018-02-25] MEDS: HYDROCODONE/APAP 5MG-325MG TAB PO PRN ×4 (05:13→19:59)
[2018-02-25] MEDS: METOPROLOL TARTRATE 25 MG TAB PO SCH ×2 (09:23→17:52)
[2018-02-25] MEDS: BALSAM PERU/CASTOR OIL 60 GM OINT...G. TP SCH ×2 (09:23→17:52)
[2018-02-25] MEDS: DICLOFENAC SOD 50 MG TAB PO SCH ×2 (09:23→17:52)
[2018-02-25] MEDS: FAMOTIDINE 20 MG TAB PO SCH ×2 (09:23→17:52)
[2018-02-25] MEDS: LEVETIRACETAM 500 MG TAB PO SCH ×4 (09:23→23:24)
[2018-02-25] MEDS: QUETIAPINE FUMARATE 25 MG TAB PO SCH ×2 (09:23→17:52)
[2018-02-25] MEDS: RIVAROXABAN 10 MG TABLET PO SCH (17:52)
[2018-02-26] VITALS: BP 114/66
[2018-02-26 04:00] VITALS: BP 146/71
[2018-02-26] MEDS: LEVOTHYROXINE SODIUM 88 MCG TAB PO SCH (05:59)
[2018-02-26 08:00] VITALS: BP 147/70
[2018-02-26] MEDS: LEVETIRACETAM 500 MG TAB PO SCH ×2 (08:55→14:30)
[2018-02-26] MEDS: METOPROLOL TARTRATE 25 MG TAB PO SCH (08:55)
[2018-02-26] MEDS: QUETIAPINE FUMARATE 25 MG TAB PO SCH (08:55)
[2018-02-26] MEDS: DICLOFENAC SOD 50 MG TAB PO SCH (08:55)
[2018-02-26] MEDS: FAMOTIDINE 20 MG TAB PO SCH (08:55)
[2018-02-26] MEDS: BALSAM PERU/CASTOR OIL 60 GM OINT...G. TP SCH (09:00)
[2018-02-26 12:00] VITALS: BP 107/83
[2018-02-26 16:00] VITALS: BP 132/64
== END 2018-02-26 17:04 | DRG 853 ==
LOC: ER 17:09 → ERHOLD 20:59 → IMCU 02-18 → MED/SURG 02-22 12:36
PROVIDERS: ADMIT Internal Medicine; ATTEND Internal Medicine
PROC: 0QS706Z Reposition Left Upper Femur with Intramedullary Internal Fixation Device, Open Approach (ICD-10-PCS; principal; 2018-02-20 12:30)
DX: A41.9 Sepsis, unspecified organism (principal); S72.142A Displaced intertrochanteric fracture of left femur, initial encounter for closed fracture; R65.21 Severe sepsis with septic shock; G92 Toxic encephalopathy; J18.9 Pneumonia, unspecified organism; I48.91 Unspecified atrial fibrillation; F03.90 Unspecified dementia, unspecified severity, without behavioral disturbance, psychotic disturbance, mood disturbance, and anxiety; I12.9 Hypertensive chronic kidney disease with stage 1 through stage 4 chronic kidney disease, or unspecified chronic kidney disease; N18.3 Chronic kidney disease, stage 3 (moderate); Z82.49 Family history of ischemic heart disease and other diseases of the circulatory system; E03.9 Hypothyroidism, unspecified; G40.909 Epilepsy, unspecified, not intractable, without status epilepticus; I48.0 Paroxysmal atrial fibrillation; F10.10 Alcohol abuse, uncomplicated; I49.1 Atrial premature depolarization; K59.00 Constipation, unspecified; D64.9 Anemia, unspecified; F41.9 Anxiety disorder, unspecified
CPT/HCPCS: 36415; 36600; 51700; 70450; 71045; 71260; 72125; 72170; 76001; 80048; 80053; 80307; 80320; 81001; 82550; 82553; 82805; 83605; 83880; 84484; 85014; 85018; 85025; 86850; 86900; 87040; 87071; 87086; 87205; 93005; 93306; 93970; 94640; 97139; 99284; C1713; J0690; J1100; J1200; J2001; J2185; J2250; J2270; J2405; J3370; J7030; J7050; J7120; Q9967